=== PATIENT | female | born 1935 | race Caucasian/White ===

== ENCOUNTER → 2016-07-17 | Outpatient (CLI) | payer MEDICARE, OTHER ==
[~2016-07-17] MED LIST: LISINOPRIL5 MG PO; TYLENOL W/CODEI1 TA4 PO; XALATAN 2.5 ML2.5 M1 OU
[2016-07-17 10:15] LABS: HEMOGLOBIN A1c 5.4 % (4.8-5.6)
[2016-07-17 10:25] LABS: ALBUMIN 3.6 gm/dl (3.1-4.5); BILIRUBIN, DIRECT < 0.1 mg/dL (0.0-0.2); BUN 20 mg/dl (7-24); CARBON DIOXIDE 27 mmol/L (21-32); CHLORIDE 105 mmol/L (98-107); CHOLESTEROL 222 mg/dL (<200); EST GLOM FILT AFRICAN AMERICAN > 60 ml/min; GLUCOSE 100 mg/dL (65-99); HDL CHOLESTEROL 65 mg/dl (40-60); LDL CHOLESTEROL 140 mg/dL (9-159); POTASSIUM 4.4 mmol/L (3.5-5.1); SGOT/AST 17 IU/L (3-35); SGPT/ALT 14 U/L (12-78); SODIUM 142 mmol/L (136-145); TRIGLYCERIDES 87 mg/dl (<150); VLDL CHOLESTEROL 17 mg/dL (6-40)
[2016-07-17 10:27] LABS: ALKALINE PHOSPHATASE 100 U/L (45-117); BILIRUBIN, TOTAL 0.5 mg/dl (0.2-1.0); TOTAL PROTEIN 6.9 gm/dL (6.4-8.2)
== END | disposition home or self-care (01) ==
LOC: LAB 09:07
PROVIDERS: Internal Medicine
DX: I10 Essential (primary) hypertension (principal); E78.4 Other hyperlipidemia; E55.9 Vitamin D deficiency, unspecified; R73.01 Impaired fasting glucose

== ENCOUNTER → 2016-07-31 | Outpatient (CLI) | payer MEDICARE, OTHER | END | disposition home or self-care (01) | LOC: MAMMO 11:11 | DX: Z12.31 Encounter for screening mammogram for malignant neoplasm of breast (principal) ==

== ENCOUNTER → 2017-01-09 | Outpatient (CLI) | payer MEDICARE, OTHER ==
[2017-01-09 10:57] LABS: ALBUMIN 3.7 gm/dl (3.1-4.5); ALKALINE PHOSPHATASE 105 U/L (45-117); BILIRUBIN, DIRECT 0.1 mg/dL (0.0-0.2); BUN 23 mg/dl (7-24); CHLORIDE 106 mmol/L (98-107); CHOLESTEROL 215 mg/dL (<200); CREATININE 0.76 mg/dL (0.55-1.02); HDL CHOLESTEROL 66 mg/dl (40-60); LDL CHOLESTEROL 136 mg/dL (9-159); POTASSIUM 4.2 mmol/L (3.5-5.1); SGOT/AST 14 IU/L (3-35); SGPT/ALT 13 U/L (12-78); SODIUM 141 mmol/L (136-145); TOTAL PROTEIN 7.3 gm/dL (6.4-8.2); TRIGLYCERIDES 64 mg/dl (<150); VLDL CHOLESTEROL 13 mg/dL (6-40)
== END | disposition home or self-care (01) ==
LOC: LAB 10:07
PROVIDERS: Internal Medicine
DX: E78.4 Other hyperlipidemia (principal); R73.02 Impaired glucose tolerance (oral); I10 Essential (primary) hypertension; E55.9 Vitamin D deficiency, unspecified

== ENCOUNTER → 2018-02-18 | Outpatient (CLI) | payer MEDICARE, OTHER | END | disposition home or self-care (01) | LOC: MAMMO 12:48 | DX: Z12.31 Encounter for screening mammogram for malignant neoplasm of breast (principal) ==

== ENCOUNTER → 2020-11-22 | Outpatient (CLI) | payer MEDICARE, OTHER | END | disposition home or self-care (01) | LOC: RAD 11:40 | PROVIDERS: ATTEND Physician Assistant | DX: M81.0 Age-related osteoporosis without current pathological fracture (principal); M85.89 Other specified disorders of bone density and structure, multiple sites; Z78.0 Asymptomatic menopausal state ==

== ENCOUNTER → 2022-07-12 | Outpatient (CLI) | payer MEDICARE, OTHER | END | disposition home or self-care (01) | LOC: CT 13:00 | PROVIDERS: ATTEND Physician Assistant | DX: K46.9 Unspecified abdominal hernia without obstruction or gangrene (principal); N20.0 Calculus of kidney; K57.32 Diverticulitis of large intestine without perforation or abscess without bleeding; N26.1 Atrophy of kidney (terminal) ==